=== PATIENT | female | born 1980 | race Caucasian/White ===

== ENCOUNTER → 2025-06-14 | Day surgery (SDC) | payer MEDICAID ==
[~2025-06-14] MED LIST: LIDOCAINE HCL 1% 10 MG/ML 10ML VIAL ONE; SODIUM BICARBONATE 4.2% 2.5MEQ/5ML VIAL IV ONE
== END | disposition home or self-care (01) ==
LOC: RAD 10:36
PROVIDERS: ATTEND Surgery Surgical Oncology
DX: D24.1 Benign neoplasm of right breast (principal); Z79.899 Other long term (current) drug therapy
CPT/HCPCS: 19281; J2003; J3490; A4648

== ENCOUNTER → 2025-06-15 | Day surgery (SDC) | payer MEDICAID ==
[~2025-06-15] VITALS: Ht 157.5 cm; Wt 62.1 kg
[~2025-06-15] MED LIST changes: +ACETAMINOPHEN 1,000MG/100ML PREMIX IV PRN; +BUPIVACAINE HCL/PF 0.5% (5MG/ML) 10ML ONE; +FAMOTIDINE 20MG/2ML VIAL IV ONE; +FENTANYL CITRATE/PF 50MCG/ML 2ML VIAL ONE; +HYDRALAZINE 20MG/ML VIAL IV PRN; +HYDROMORPHONE HCL/PF 1MG/ML INJ IV PRN; +LABETALOL 5MG/ML 4ML INJ IV PRN; +LACTATED RINGERS 1,000 ML IV SCH; -LIDOCAINE HCL 1% 10 MG/ML 10ML VIAL ONE; +LIDOCAINE HCL 1% 20ML VIAL ONE; +LIDOCAINE HCL/EPINEPHRINE 1%-EPI 1:100,000 20ML VIAL ONE; +MEPERIDINE HCL/PF 25MG/ML CPJ IV PRN; +MIDAZOLAM HCL 2 MG/2 ML VIAL ONE; +PROPOFOL 200MG/20ML VIAL IV ONE; -SODIUM BICARBONATE 4.2% 2.5MEQ/5ML VIAL IV ONE
[2025-06-15 07:49] LABS: UCG KIT LOT# 946166; UCG SCREEN NEGATIVE
[2025-06-15] MEDS: FAMOTIDINE 20MG/2ML VIAL IV PRN (11:12)
[2025-06-15] MEDS: ONDANSETRON HCL 4MG/2ML INJ IV PRN (11:12)
[2025-06-15] MEDS: DIPHENHYDRAMINE 50MG/ML VIAL IV SCH (12:08)
[2025-06-15] MEDS: DEXAMETHASONE 4MG/ML 1ML VIAL IV SCH (12:09)
[2025-06-15] MEDS: ACETAMINOPHEN 1000MG/100ML 100 ML IV PRN (13:25)
== END | disposition home or self-care (01) ==
LOC: OR 07:25
PROVIDERS: ATTEND Surgery Surgical Oncology
DX: D24.1 Benign neoplasm of right breast (principal); N64.89 Other specified disorders of breast; Z79.899 Other long term (current) drug therapy; Z98.890 Other specified postprocedural states
CPT/HCPCS: 19125; 76098; 81025; 88305; J3010; J0665; J1100; J1200; J1308; J2004; J2003; J2250; J2405; J2704; J0131